=== PATIENT | female | born 1975 | race Two or more races ===

== ENCOUNTER 2019-01-07 05:51 | Emergency (ER) | payer SELFPAY ==
[~2019-01-07] VITALS: Ht 154.9 cm; Wt 59.0 kg
[2019-01-07 07:10] LABS: Basophils # (auto) 0 uL; Basophils % (auto) 0.6 % (0.0-2.0); Eosinophils # (auto) 0 uL; Eosinophils % (auto) 0.4 % (0.0-7.0); Hematocrit 37.8 % (36.0-46.0); Hemoglobin 12.8 g/dL (12.2-16.2); Lymphocytes # (auto) 1.4 uL; Lymphocytes % (auto) 22.7 % (10.0-50.0); Mean Corpuscular Hemoglobin 28.8 pg (28.0-32.0); Mean Corpuscular Hgb Conc. 33.8 g/dL (32.0-36.0); Mean Corpuscular Volume 85.3 fL (80.0-100.0); Monocytes # (auto) 0.5 uL; Monocytes % (auto) 8.3 % (0.0-12.0); Neutrophils # (auto) 4.3 uL; Platelet Count (auto) 255 10^3/uL (140-450); Red Blood Cells 4.44 10^6/uL (4.0-5.20); Red Cell Distribution Width 15.6 % (11.8-14.3); White Blood Cell 6.4 10^3/uL (4.4-10.8)
[2019-01-07 07:26] LABS: Albumin 3.6 g/dL (3.4-5.0); BUN/Creatinine Ratio 17.6; Calcium 8.3 mg/dL (8.5-10.1); Potassium 3.8 mmol/L (3.5-5.1)
[2019-01-07 07:29] LABS: Bilirubin, Total 0.7 mg/dL (0.2-1.0); Total Protein 7.1 g/dL (6.4-8.2)
[2019-01-07 07:55] LABS: Urine Bacteria NONE SEEN /hpf (None Seen); Urine Blood Negative /uL (Negative); Urine Mucus FEW (None Seen); Urine Specific Gravity 1.012 (1.001-1.035); Urine WBC 4 /hpf (0 - 5)
[2019-01-07 08:14] VITALS: BP 134/71
== END 2019-01-07 09:54 | disposition home or self-care (01) ==
LOC: ER 05:55
DX: N64.4 Mastodynia (principal); N39.0 Urinary tract infection, site not specified
CPT/HCPCS: 36415; 71045; 76642; 80053; 81001; 85025

== ENCOUNTER 2020-08-05 04:20 | Emergency (ER) | payer MEDICAID ==
[~2020-08-05] VITALS: Ht 152.4 cm; Wt 59.0 kg
[2020-08-05 04:24] VITALS: BP 115/50
== END 2020-08-05 05:55 | disposition home or self-care (01) ==
LOC: ER 04:20
DX: S20.461A Insect bite (nonvenomous) of right back wall of thorax, initial encounter (principal); Z90.710 Acquired absence of both cervix and uterus; W57.XXXA Bitten or stung by nonvenomous insect and other nonvenomous arthropods, initial encounter; Y93.89 Activity, other specified; Y92.89 Other specified places as the place of occurrence of the external cause; Y99.8 Other external cause status

== ENCOUNTER 2021-03-24 10:23 | Emergency (ER) | payer MEDICAID ==
[~2021-03-24] VITALS: Ht 154.9 cm; Wt 60.8 kg
[2021-03-24 10:52] VITALS: BP 112/35
[2021-03-24] MEDS ORDERED: KETOROLAC TROMETH 60MG/2ML VIAL IM ONE (11:15)
== END 2021-03-24 11:47 | disposition home or self-care (01) ==
LOC: ER 10:23
DX: S46.911A Strain of unspecified muscle, fascia and tendon at shoulder and upper arm level, right arm, initial encounter (principal); Z90.710 Acquired absence of both cervix and uterus; X50.0XXA Overexertion from strenuous movement or load, initial encounter; Y93.89 Activity, other specified; Y92.89 Other specified places as the place of occurrence of the external cause; Y99.8 Other external cause status
CPT/HCPCS: 73030; J1885